=== PATIENT | female | born 1995 | race American Indian/Alaskan Native ===

== ENCOUNTER 2017-08-02 20:19 | Emergency (ER) | payer SELFPAY ==
[2017-08-03 00:15] LABS: HCG Qualitative,Urine Negative (Negative)
[2017-08-03 00:25] LABS: Bilirubin,Urine NEG (Negative); Blood,Urine NEG (Negative); Color,Urine Yellow (Yellow); Mucus,Urine 3+ /HPF; Nitrite,Urine NEG (Negative); Protein,Urine <15 mg/dL mg/dL (Negative)
--- NOTE | 2017-08-03 02:56 | Emergency Department Report ---
ED Female HPI - General Chief complaint: Urogenital-Female Stated complaint: VAG D/C WITH ODOR Time Seen by Provider: 08/03/17 02:23 Source: patient Mode of arrival: Ambulatory Limitations: No Limitations - History of Present Illness Initial comments: This is a 21-year-old female nontoxic, well nourished in appearance, no acute signs of distress presents to the ED with c/o of vaginal discharge x1 week. Patient describes vaginal discharge as yellow in color with foul odor. Patient initially had unprotected sex 2 weeks ago and then developing symptoms last week. Patient states she is concerned about STD and wanted to be treated empirically. Patient and her boyfriend called her stating that he has gonorrhea /chlamydia Patient denies any abdominal pain, pelvic pain, fever, chills, back pain, dysuria, polyuria, hematuria or dysuria, headache, stiff neck, chest pain or shortness of breath. Patient states allergies to amoxicillin. Denies any significant past medical history. MD Complaint: vaginal discharge, possible STD -: week(s) (1) Radiation: non-radiating Severity: mild Severity scale (0 -10): 0 Consistency: constant Improves with: none Worsens with: none Are you Now?: No Last Menstrual Period: 07/26/17 EDC: 05/02/18 Associated Symptoms: vaginal discharge. denies: vaginal bleeding, abdominal pain, nausea/vomiting, fever/chills, headaches, loss of appetite, dysuria, hematuria, rash, seizure, shortness of breath, syncope, weakness - Related Data Sexually active: Yes Previous Rx's Medication Instructions Recorded Last Taken Type metroNIDAZOLE [Flagyl] 500 mg PO Q12HR #14 tab 08/03/17 Unknown Rx Allergies Allergy/AdvReac Type Severity Reaction Status Date / Time amoxicillin Allergy Rash Verified 08/02/17 21:43 ED Review of Systems ROS: Stated complaint: VAG D/C WITH ODOR Other details as noted in HPI Constitutional: denies: chills, fever Eyes: denies: eye pain, eye discharge, vision change ENT: denies: ear pain, throat pain Respiratory: denies: cough, shortness of breath, wheezing Cardiovascular: denies: chest pain, palpitations Endocrine: no symptoms reported Gastrointestinal: denies: abdominal pain, nausea, diarrhea Genitourinary: discharge. denies: urgency, dysuria Musculoskeletal: denies: back pain, joint swelling, arthralgia Skin: denies: rash, lesions Neurological: denies: headache, weakness, paresthesias Psychiatric: denies: anxiety, depression Hematological/Lymphatic: denies: easy bleeding, easy bruising ED Past Medical Hx - Past Medical History Previous Medical History?: No - Surgical History Past Surgical History?: Yes Additional Surgical History: c-sect X1 - Social History Smoking Status: Never Smoker Substance Use Type: None - Medications Home Medications: Home Medications Medication Instructions Recorded Confirmed Last Taken Type metroNIDAZOLE [Flagyl] 500 mg PO Q12HR #14 tab 08/03/17 Unknown Rx ED Physical Exam - General Limitations: No Limitations General appearance: alert, in no apparent distress - Head Head exam: Present: atraumatic, normocephalic - Eye Eye exam: Present: normal appearance, PERRL, EOMI Pupils: Present: normal accommodation - ENT ENT exam: Present: mucous membranes moist - Neck Neck exam: Present: normal inspection - Respiratory Respiratory exam: Present: normal lung sounds bilaterally. Absent: respiratory distress - Cardiovascular Cardiovascular Exam: Present: regular rate, normal rhythm. Absent: systolic murmur, diastolic murmur, rubs, gallop - GI/Abdominal GI/Abdominal exam: Present: soft, normal bowel sounds. Absent: distended, tenderness, guarding, rebound, rigid, diminished bowel sounds - Rectal Rectal exam: Present: deferred - External exam: Present: normal external exam, other (chaperoned [employer] asst present during exam). Absent: erythema, swelling, lesions, lacerations, ecchymosis, bleeding Speculum exam: Present: normal speculum exam, cervical discharge (yellow with foul odor), other (chaperoned [employer] asst present during exam). Absent: erythema, vaginal discharge, vaginal bleeding, foreign body, tissue, laceration Bi-manual exam: Present: normal bi-manual exam, other (chaperoned [employer] asst present during exam). Absent: cervical motion tendernes, adnexal tenderness, adnexal mass, uterine enlargement, uterine tenderness - Extremities Exam Extremities exam: Present: normal inspection, full ROM, normal capillary refill. Absent: tenderness, pedal edema, joint swelling, calf tenderness - Back Exam Back exam: Present: normal inspection, full ROM. Absent: tenderness, CVA tenderness (R), CVA tenderness (L), muscle spasm, paraspinal tenderness, vertebral tenderness, rash noted - Neurological Exam Neurological exam: Present: alert, oriented X3, CN II-XII intact, normal gait, reflexes normal - Psychiatric Psychiatric exam: Present: normal affect, normal mood - Skin Skin exam: Present: warm, dry, intact, normal color. Absent: rash ED Course Vital Signs 08/02/17 21:43 Temperature 97.7 F Pulse Rate 51 L Respiratory 18 Rate Blood Pressure 135/60 O2 Sat by Pulse 100 Oximetry - Reevaluation(s) Reevaluation #1: 08/03/17 02:56 Patient is speaking in full sentences with no signs of distress noted. ED Medical Decision Making - Medical Decision Making This is a 21-year-old female that presents with possible STD exposure and BV. Vision is stable and was examined by me. Chaperoned jacket present during exam. Gonorrhea and chlamydia pending. Wet prep obtained. Patient received Rocephin and azithromycin as she stated she wants to be treated empirically. Patient was instructed to return in 3 days to obtain results of gonorrhea or chlamydia. Patient was instructed Follow-up with a primary care doctor in 3-5 days or if symptoms worsen and continue return to emergency room as soon as possible. Patient received Flagyl at discharge and was instructed not to consume any alcohol while taking Flagyl. At time of discharge, the patient does not seem toxic or ill in appearance. No acute signs of distress noted. Patient agrees to discharge treatment plan of care. No further questions noted by the patient. Critical care attestation.: If time is entered above; I have spent that time in minutes in the direct care of this critically ill patient, excluding procedure time. ED Disposition Clinical Impression: Possible exposure to STD, Bacterial vaginosis Disposition: DC-01 TO HOME OR SELFCARE Is pt being admited?: No Does the pt Need Aspirin: No Condition: Stable Instructions: Safe Sex (ED), Bacterial Vaginosis (ED), Metronidazole (By mouth) Additional Instructions: Follow-up with a primary care doctor in 3-5 days or if symptoms worsen and continue return to emergency room as soon as possible. Return in 3 days to obtain results of the gonorrhea and chlamydia. Do not consume any alcohol while taken Flagyl. Prescriptions: metroNIDAZOLE [Flagyl] 500 mg PO Q12HR #14 tab Referrals: CYNTHIA BAUTISTA MD [Primary Care Provider] - 3-5 Days PRIMARY CAREMD [Referring] - 3-5 Days [facility] [place][Note 3] [Outside] - 3-5 Days [facility] [Outside] - 3-5 Days Forms: Work/School Release Form(ED), STI Treatment and Prevention
[2017-08-03] MEDS ORDERED: XYLOCAINE 1% MPF 5 mL INFILTRATI ONE (03:18)
[2017-08-03] MEDS ORDERED: ZITHROMAX PO ONE (03:18)
[2017-08-03] MEDS ORDERED: ROCEPHIN IM ONE (03:18)
[2017-08-03 05:20] VITALS: BP 128/60
== END 2017-08-03 04:12 | disposition home or self-care (01) ==
LOC: ED 20:19
DX: N76.0 Acute vaginitis (principal); Z88.1 Allergy status to other antibiotic agents
CPT/HCPCS: 81001; 81025; 87210; 87591; 96372; 99284; J0696